=== PATIENT | female | born 1965 | race Caucasian/White ===

== ENCOUNTER 2022-11-27 08:13 | Outpatient (CLI) | payer MEDICARE, SELFPAY ==
--- NOTE | 2022-12-16 16:26 | WPDSLEEPSTUD ---
Sleep Study Date of Study: 11/27/22 Ordering Provider: Les Garcia MD Interpreting Physician: Liz Rapp MD Sleep Study Type: BiPAP Titration Height: 1.65 m Weight: 68.039 kg Body Mass Index: 25.0 Neck Circumference (inches): 14 [place]: 14 Reason for Sleep Study Patient states she?s been using PAP therapy for about 13 years and never feels rested. States her pulse oximetry drops very low during the night according to her smart watch. 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 She was previously treated with BiPAP 22/12 cm. Her download showed a residual AHI of 10.5 with a central AHI of 5.1 Seh has chronic pain and a pain stimulator in the right buttocks. There are no opioids listed on her medication list. Her physician is sending her for BiPAP vs ASV titration with addition of O2 if needed. Sleep History Sophia Tompkins is a 57-year-old female with history of severe obstructive sleep apnea compliant with BiPAP therapy. She presents for BiPAP titration due to daytime hypersomnia and reported low oxygen levels at night based on her smart watch. She had weight loss after bariatric surgery. She never awakens from sleep short of breath. She never awakens at night with heartburn, belching or cough.? She never snores with BiPAP on. She occasionally has trouble sleeping when she has a cold. She never suddenly wakes up gasping for breath during the night. She never has breathing problems at night. She occasionally sweats excessively at night. She never notices her heart pounding or beating irregularly during the night. She occasionally falls asleep during the day. She never falls asleep while driving. She never experiences loss of muscle tone with strong emotion. She never feels paralyzed on waking or falling asleep. She never experiences vivid dreams upon waking or falling asleep. She does not feel afraid of going to sleep. She does not have nightmares. She never recalls her dreams. She occasionally has thoughts racing through her mind. She rarely feels sad or depressed. She rarely feels anxiety or worry about things. She rarely has muscle tension. She does not notice parts of her body jerk. She does not kick during the night or feel crawling or aching feelings in her legs. She occasionally feels leg pain at night. She never grinds her teeth or has morning jaw pain. She constantly feels bothered by pain during the day and is frequently awakened by pain during the night. She frequently wakes up feeling stiff, sore, and achy in the morning and constantly wakes with pain in her neck, spine, or joints. Normal bedtime is around 8pm on the weekdays and the same on the weekends, about 30 minutes to fall asleep. She typically gets about 8 hours of sleep per night. Her wake up time is between 4 and 5am on the weekdays and same on the weekends. She typically wakes up many times per night due to pain for varied amounts of time. She watches television before bed. She takes naps in the afternoon or evening and feels refreshed after a short 10-15 minute nap. She is often too tired to feel like doing anything social. Habits:? Never smoked tobacco. Drinks about 2 caffeinated beverages per day. Drinks alcohol socially and does not use recreational substances. [facility] Past Medical History Medical History (Updated 12/16/22 @ 16:29 by Liz Rapp MD) Allergic rhinitis Asthma Hypertension Obstructive sleep apnea Surgical History Surgical History (Updated 12/16/22 @ 16:31 by Liz Rapp MD) H/O bariatric surgery Family History Family History (Updated 12/16/22 @ 16:30 by Liz Rapp MD) Other CAD (coronary artery disease) COPD (chronic obstructive pulmonary disease) Hypertension Obstructive sleep apnea Medications Medications: handwritten list lisinopril 10 mg a day Singulair 10 mg a day cyclo
[2022-12-18 13:29] VITALS: BMI 25.0
== END 2022-11-28 06:35 | disposition home or self-care (01) ==
PROVIDERS: PCP Nurse Practitioner; Visit Provider Otolaryngology
DX: G47.33 Obstructive sleep apnea (adult) (pediatric) (principal); R09.02 Hypoxemia
CPT/HCPCS: 95811